=== PATIENT | male | born 1985 | race Hispanic/Latino ===

== ENCOUNTER 2020-01-06 02:01 | Emergency (ER) | payer BC ==
[2020-01-06] MEDS ORDERED: ASPIRIN 325 MG TABLET ONE (02:07)
[2020-01-06 02:17] LABS: BASOPHILS % (AUTO) 0.6 % (0.0-5.0); EOSINOPHILS % (AUTO) 2.1 % (0.0-8.0); HEMATOCRIT 44.7 % (42-54); LYMPHOCYTES % (AUTO) 44.8 % (21.0-51.0); MEAN CORPUSCULAR HGB CONC 34.7 g/dL (32.0-36.0); MEAN CORPUSCULAR VOLUME 86.5 fL (79-99); MONOCYTES % (AUTO) 6.3 % (3.0-13.0); NEUTROPHILS % (AUTO) 45.9 % (40.0-77.0); PLATELET COUNT (AUTO) 302 K/uL (130-400); RED BLOOD CELL COUNT(AUTO) 5.17 MIL/uL (4.50-6.20); RED CELL DISTRIBUTION WIDTH 11.7 % (11.0-15.5); WHITE BLOOD COUNT (AUTO) 8.7 K/uL (4.8-10.8)
[2020-01-06 02:27] LABS: CREATININE 0.9 mg/dL (0.5-1.5); POTASSIUM 3.9 mmol/L (3.5-5.1)
[2020-01-06 02:30] LABS: INR 0.91 (0.85-1.15); PARTIAL THROMBOPLASTIN TIME 25.7 SEC (26.3-35.5); PROTHROMBIN TIME 9.9 SEC (9.6-11.6)
[2020-01-06 02:32] LABS: ALBUMIN 4.2 g/dL (3.5-5.0); BILIRUBIN,TOTAL 0.3 mg/dL (0.2-1.0); TOTAL PROTEIN, SERUM 7.8 g/dL (6.0-8.3)
[2020-01-06] MEDS ORDERED: LIDOCAINE HCL 2% VISCOUS 15 ML UDCUP ONE (02:58)
[2020-01-06] MEDS ORDERED: MAG HYDROX/AL HYDROX/SIMETH ES 30 ML SUSP UDCUP ONE (02:58)
== END 2020-01-06 04:11 | disposition home or self-care (01) ==
LOC: EDH 02:01
DX: R07.89 Other chest pain (principal)
CPT/HCPCS: 36415; 71045; 80053; 83690; 84484; 85025; 85610; 85730; 93005

== ENCOUNTER 2021-02-14 06:06 | Emergency (ER) | payer OTHER, BC ==
[2021-02-14 06:32] LABS: BASOPHILS % (AUTO) 0.5 % (0.0-5.0); EOSINOPHILS % (AUTO) 2.6 % (0.0-8.0); HEMATOCRIT 42.6 % (42-54); LYMPHOCYTES % (AUTO) 41.1 % (21.0-51.0); MEAN CORPUSCULAR HEMOGLOBIN 30.4 pg (27.0-33.0); MEAN CORPUSCULAR HGB CONC 33.6 g/dL (32.0-36.0); MEAN CORPUSCULAR VOLUME 90.4 fL (79-99); MONOCYTES % (AUTO) 8.1 % (3.0-13.0); NEUTROPHILS % (AUTO) 47.3 % (40.0-77.0); PLATELET COUNT (AUTO) 289 K/uL (130-400); RED BLOOD CELL COUNT(AUTO) 4.71 MIL/uL (4.50-6.20); RED CELL DISTRIBUTION WIDTH 12.3 % (11.0-15.5); WHITE BLOOD COUNT (AUTO) 7.6 K/uL (4.8-10.8)
[2021-02-14 06:37] LABS: APPEARANCE,URINE Clear (CLEAR); BILIRUBIN,URINE Negative (NEGATIVE); COLOR,URINE Yellow (YELLOW); GLUCOSE, URINE (UA) Negative (NEGATIVE); KETONES,URINE Negative (NEGATIVE); LEUKOCYTE ESTERASE ,URINE Negative (NEGATIVE); NITRATE,URINE Negative (NEGATIVE); OCCULT BLOOD,URINE Negative (NEGATIVE); PROTEIN,URINE Negative (NEGATIVE); UROBILINOGEN,URINE 0.2 mg/dL (0.2-1.0)
[2021-02-14 06:53] LABS: BILIRUBIN,TOTAL 0.3 mg/dL (0.2-1.0)
[2021-02-14] MEDS ORDERED: MORPHINE SULFATE 4 MG/1ML SYG ONE (06:53)
[2021-02-14] MEDS ORDERED: ONDANSETRON HCL 4 MG/2 ML VIAL ONE (06:53)
[2021-02-14 06:54] LABS: ALBUMIN 4.3 g/dL (3.5-5.0)
== END 2021-02-14 07:59 | disposition home or self-care (01) ==
LOC: EDH 06:06
DX: K80.80 Other cholelithiasis without obstruction (principal)
CPT/HCPCS: 36415; 76705; 80053; 81003; 83690; 84484; 85025; 93005; 96374; 96375; 99285; J2270; J2405

== ENCOUNTER 2025-08-24 03:57 | Observation (INO) | payer OTHER, BC ==
[~2025-08-24] VITALS: Ht 172.7 cm; Wt 111.2 kg
--- NOTE | 2025-08-24 04:04 | ERN ---
General Chief Complaint: Abdominal Pain Stated Complaint: C/O RUQ PAIN RADIATING TO BACK Time Seen by MD: 03:58 History of Present Illness Initial Comments 40-year-old male here for evaluation of right upper quadrant pain that radiated to the back. Pain started earlier today at 12 noon. States that he recently had a dental extraction today for which he has been given Tylenol extra strength as well as Tylenol with codeine. Last time he took these medications was 4 hours prior to arrival. States the abdominal pain started when he 1st took the Tylenol with codeine. Pain is described as colicky and comes in waves. No vomiting or diarrhea. Patient states he has been eating last secondary to the recent tooth extraction. Surgical history includes cholecystectomy. Allergies: Coded Allergies: No Known Allergies (Unverified Allergy, Unknown, 08/24/25) Gastrointestinal/Abdominal: (+) abdominal pain Review of Systems: was completed, & the rest were negative. Physical Exam General Appearance: (+) no apparent distress Orientation: (+) alert, (+) oriented x 3 Head/Face Trauma: No Eye: bilateral eye normal inspection, bilateral eye PERRL Ear, Nose, Throat: (+) hearing grossly normal, (+) normal ENT inspection, (+) moist mucous membraine, (+) normal pharynx Neck: (+) normal inspection Respiratory: (+) chest non-tender Heart: (+) regular; (-) murmur Gastrointestinal: (+) soft, (+) non-tender, (+) tender (Right upper quadrant) Skin: (+) normal color; (-) rash Results Laboratory and Microbiology Lab and Micro Result Laboratory Tests Test 08/24/25 04:24 White Blood Count 7.8 K/uL (4.8-10.8) Red Blood Count 5.32 MIL/uL (4.50-6.20) Hemoglobin 16.2 g/dL (14.0-18.0) Hematocrit 47.4 % (42-54) Mean Corpuscular Volume 89.1 fL (79-99) Mean Corpuscular Hemoglobin 30.5 pg (27.0-33.0) Mean Corpuscular Hemoglobin Concent 34.2 g/dL (32.0-36.0) Red Cell Distribution Width 12.5 % (11.0-15.5) Platelet Count 242 K/uL (130-400) Mean Platelet Volume 9.0 fL (7.5-10.5) Immature Granulocyte % (Auto) 0.3 % (0-1) Neutrophils (%) (Auto) 55.9 % (40.0-77.0) Lymphocytes (%) (Auto) 32.1 % (21.0-51.0) Monocytes (%) (Auto) 9.4 % (3.0-13.0) Eosinophils (%) (Auto) 1.8 % (0.0-8.0) Basophils (%) (Auto) 0.5 % (0.0-5.0) Neutrophils # (Auto) 4.4 K/uL (1.8-7.7) Lymphocytes # (Auto) 2.5 K/uL (1.0-4.8) Monocytes # (Auto) 0.7 K/uL (0.1-1.0) Eosinophils # (Auto) 0.14 K/uL (0.00-0.70) Basophils # (Auto) 0.04 K/uL (0.00-0.20) Absolute Immature Granulocyte (auto 0.02 K/uL (0-1) Nucleated Red Blood Cells 0.0 % (0.0-0.19) Sodium Level 138 mmol/L (136-145) Potassium Level 3.9 mmol/L (3.5-5.1) Chloride Level 101 mmol/L (101-111) Carbon Dioxide Level 28 mmol/L (21-32) Blood Urea Nitrogen 18 mg/dL (7-18) Creatinine 1.0 mg/dL (0.5-1.3) Glomerular Filtration Rate Calc 96 mL/min (>90) Random Glucose 106 mg/dL (70-105) H Total Calcium 8.8 mg/dL (8.5-10.1) Total Bilirubin 0.8 mg/dL (0.2-1.0) Direct Bilirubin 0.3 mg/dL (0.0-0.3) Aspartate Amino Transf (AST/SGOT) 56 U/L (10-37) H Alanine Aminotransferase (ALT/SGPT) 60 U/L (12-78) Alkaline Phosphatase 67 U/L (50-136) Lactate Dehydrogenase 162 U/L (81-234) Total Protein 7.3 g/dL (6.0-8.3) Albumin 3.9 g/dL (3.5-5.0) Triglycerides Level 199 mg/dL (30-200) Lipase 1088 U/L (16-77) *H MDM 40-year-old male here for evaluation of right upper quadrant pain. Has had cholecystectomy before in the past. We will get basic lab work at this time. Disposition pending results of labs and clinical improvement of the patient ED Course Orders Procedure Category Date Status Time Cbc With Differential LAB 08/24/25 Complete 03:59 Basic Metabolic Panel LAB 08/24/25 Complete 03:59 Hepatic Function Panel LAB 08/24/25 Complete 03:59 Lipase LAB 08/24/25 Complete 03:59 Morphine 4mg Syg PHA 08/24/25 Complete (Morphine 4mg Syg) 04:30 Ondansetron 4mg Inj PHA 08/24/25 Complete (Zofran 4mg Inj) 04:30 0.9%Nacl 1000ml (Ns PHA 08/24/25 In Process 1000ml) 04:30 Lactate Dehydrogenase LAB 08/24/25 Complete 04:24 Ct Abdomen/Pelvis CT 08/24/25 Taken W/Wo Contras 05:23 Triglycerides LAB 08/24/25 Complete 05:23 Iohexol (Omnipaque) PHA 08/24/25 Complete 05:35 Current Medications Medications (Trade) Dose Ordered Sig/Krystin Route PRN Reason Start Time Stop Time Status Last Admin Dose Admin Iohexol (Omnipaque) 75 ml STK-MED ONCE IV 08/24/25 05:35 08/24/25 05:35 DC Morphine Sulfate (morPHINE 4MG SYG) 4 mg ONCE ONCE IVP 08/24/25 04:30 08/24/25 04:31 DC 08/24/25 04:30 Ondansetron HCl (zoFRAN 4MG INJ) 4 mg ONCE ONCE IVP 08/24/25 04:30 08/24/25 04:31 DC 08/24/25 04:30 Sodium Chloride 1,000 ml @ 0 mls/hr Q0M IV 08/24/25 04:30 09/23/25 04:29 08/24/25 04:31 Vital Signs Date Time Temp Pulse Resp B/P (MAP) Pulse Ox O2 Delivery O2 Flow Rate FiO2 08/24/25 04:38 98.8 88 18 124/66 98 Room Air* 0 21 08/24/25 03:58 97.2 71 20 138/88 95 Room Air Patient has been admitted for pancreatitis. Triglycerides within normal limits. Discussed plan with patient as well as patient's . I we will call hospitalist at this time DX & DISP Disposition: Inpatient Departure Impression: Primary Impression: Pancreatitis Additional Impression: Intractable abdominal pain Condition: Stable Referrals: SELF,REFERRAL (PCP) MIRYAM KASPER MD Aug 24, 2025 04:04
[2025-08-24] MEDS: 0.9%NACL 1000ML 1,000 ML IV SCH (04:31)
[2025-08-24 04:38] LABS: IMMATURE GRANULOCYTE ABSOLUTE 0.02 K/uL (0-1); NUCLEATED RED BLOOD CELLS 0.0 % (0.0-0.19); PLATELET COUNT (AUTO) 242 K/uL (130-400); RED BLOOD CELL COUNT(AUTO) 5.32 MIL/uL (4.50-6.20); RED CELL DISTRIBUTION WIDTH 12.5 % (11.0-15.5); WHITE BLOOD COUNT (AUTO) 7.8 K/uL (4.8-10.8)
[2025-08-24 04:48] LABS: CREATININE 1.0 mg/dL (0.5-1.3); GLOMERULAR FILTR. RATE CALC 96.0 mL/min (>90); GLUCOSE,RANDOM 106.0 mg/dL (70-105); SODIUM SERUM 138.0 mmol/L (136-145); UREA NITROGEN, BLOOD 18.0 mg/dL (7-18)
[2025-08-24 04:52] LABS: ASPARTATE AMINOTRANSFERASE 56.0 U/L (10-37); LACTATE DEHYDROGENASE 162.0 U/L (81-234); TOTAL PROTEIN, SERUM 7.3 g/dL (6.0-8.3)
[2025-08-24] MEDS ORDERED: IOHEXOL-350 75 ML VIAL IV ONE (05:35)
--- NOTE | 2025-08-24 06:19 | HMCIMG ---
EXAM: CT Abdomen and Pelvis with and without IV contrast. CLINICAL HISTORY: R/O PANCREATITIS. TECHNIQUE: Axial computed tomography images of the abdomen and pelvis with and without intravenous contrast. CONTRAST: With and without intravenous contrast. COMPARISON: None provided. FINDINGS: LUNG BASES: Bibasilar atelectasis. No pleural effusions are seen. LIVER: Unremarkable. GALLBLADDER AND BILE DUCTS: The gallbladder is surgically absent. No biliary ductal dilatation is evident. PANCREAS: Unremarkable. No peripancreatic fat inflammation or fluid. SPLEEN: Unremarkable. ADRENAL GLANDS: Unremarkable. KIDNEYS, URETERS, AND BLADDER: The kidneys appear within normal limits. There is no hydronephrosis or hydroureter. No urinary calculi are seen. STOMACH AND BOWEL: Unremarkable appearance of the stomach and bowel. No evidence of bowel obstruction. No evidence suggesting enteritis or colitis. APPENDIX: No evidence of acute appendicitis on CT examination. PERITONEUM: No free fluid. No free air. LYMPH NODES: No lymphadenopathy is evident. REPRODUCTIVE: Unremarkable as visualized. VASCULATURE: No evidence of abdominal aortic aneurysm. BONES: No aggressive appearing osseous lesion. No acute osseous pathology is evident. Small, approximately 9-10 mm-sized defect in the left inguinal region with herniation of omentum???left inguinal hernia containing fat. IMPRESSION: No acute intra-abdominal or pelvic abnormality. No evidence of pancreatitis. /Grey
[2025-08-24 08:15] VITALS: BP 135/81; PULSE 64; RESP 18; TEMP 97.7
[2025-08-24 08:30] VITALS: O2SAT 99
[2025-08-24] MEDS ORDERED: ACET-2079 PO (08:41)
[2025-08-24 09:03] LABS: APPEARANCE,URINE CLEAR (CLEAR); GLUCOSE, URINE (UA) NEGATIVE (NEGATIVE); LEUKOCYTE ESTERASE ,URINE NEGATIVE Leu/uL (NEGATIVE); NITRATE,URINE NEGATIVE (NEGATIVE); OCCULT BLOOD,URINE NEGATIVE (NEGATIVE)
[2025-08-24 09:04] LABS: ADD UA MICROSCOPIC NO
[2025-08-24] MEDS: LACTATED RINGERS 1000ML 1,000 ML IV SCH (09:30)
--- NOTE | 2025-08-24 09:35 | HP ---
[facility] HISTORY AND PHYSICAL Date of Service: Aug 24, 2025 Time of Service: 09:28 HISTORY OF PRESENT ILLNESS: [Mr. Murray is a 40-year-old male presenting with acute onset right upper quadrant (RUQ) abdominal pain radiating to the back. The pain began after he took Tylenol No. 3 (2 tablets) at midnight last night for post-extraction pain following a left lower molar extraction on 08/23/2025. He reports that prior to this, he was taking ibuprofen and Tylenol at night for dental pain, but did not exceed recommended dosages. He denies nausea, vomiting, or changes in bowel habits. No prior similar episodes. No history of gallstones (status post cholecystectomy years ago). No history of alcohol abuse, tobacco, or illicit drug use. He drinks alcohol occasionally. No known drug allergies. ] REVIEW OF SYSTEMS CONSTITUTIONAL: Denies fevers, chills, or night sweats. No unintentional weight loss reported. NEUROLOGICAL: Denies headache, amaurosis fugax, motor weakness, sensory deficit, vertigo/spinning sensation, gait abnormalities, or tremors. ENT: No hearing loss, otalgia, otorrhea, rhinitis, rhinorrhea, hoarseness, or sore throat. CARDIOVASCULAR: Denies any exertional angina, dyspnea on exertion, orthopnea, paroxysmal nocturnal dyspnea, palpitations, life-threatening arrhythmias, claudication. PULMONARY: Denies any shortness of breath, cough, phlegm/sputum, hemoptysis, pleuritic chest pain. SLEEP: Denies morning headaches, daytime somnolence or napping. Denies difficulty falling asleep, staying asleep, waking from sleep. Denies knowledge of snoring. GASTROINTESTINAL: RUQ pain radiating to back, denies nausea/vomiting, no diarrhea or constipation GENITOURINARY: Denies frequency, urgency, nocturia, hematuria or incontinence (Storage/Irritative symptoms.) Low urinary stream, straining to void, urinary intermittency or hesitancy, splitting of the voiding stream, terminal dribbling. ENDOCRINOLOGIC: Denies polyuria, polydipsia, polyphagia or heat/cold intolerances. HEMATOLOGIC: Denies thrombophilia/previous clots, or coagulopathy/bleeding disorders. ONCOLOGIC: Denies personal history of malignancy. DERMATOLOGIC: Denies rashes or pruritus. PSYCHIATRIC: Denies any suicidal or homicidal ideation. Denies hallucinations. PAST MEDICAL HISTORY: [No chronic medical conditions reported. 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 NEUROLOGICAL: Cranial nerves II-XII grossly intact. Motor is 5/5 in bilateral upper and lower extremities proximal to distal. No sensory deficits. HEENT: Face is symmetric. Pupils are equal and reactive. Extraocular movements are intact. NECK: Supple. No JVD. No thyromegaly. No submental, submandibular, pre- /postauricular, occipital or supraclavicular lymphadenopathy. CHEST: Normal chest expansion. No Telemetry. LUNGS: Absence of any rales, rhonchi or any wheezing. CARDIOVASCULAR: Regular. S1 and S2 normal. No appreciable rubs, murmurs or gallops. ABDOMEN: Tenderness to palpation in RUQ, no rebound or guarding, no palpable masses, bowel sounds present : Deferred. No Rosario. EXTREMITIES: Non-edematous and not cyanotic. No clubbing. Good capillary refill. SKIN: No skin breakdown. Vital Sign (Last 24 Hours) 08/24/25 07:57 Temp 98.8 Pulse 60 Resp 20 B/P (MAP) 120/64 Pulse Ox 97 O2 Delivery Room Air* O2 Flow Rate 0 FiO2 21 LABS: Laboratory: Test 08/24/25 08:02 08/24/25 04:24 Range/Units Urine Color LIGHT-YELLOW YELLOW Urine Appearance CLEAR CLEAR Urine pH 6.5 5.0-8.0 Urine Specific [place] 1.033 H 1.001-1.031 Urine Protein NEGATIVE NEGATIVE mg/dL Urine Glucose (UA) NEGATIVE NEGATIVE mg/dL Urine Ketones NEGATIVE NEGATIVE mg/dL Urine Occult Blood NEGATIVE NEGATIVE Urine Nitrate NEGATIVE NEGATIVE Urine Bilirubin NEGATIVE NEGATIVE mg/dL Urine Urobilinogen 0.2 0.2-1.0 mg/dL Urine Leukocyte Esterase NEGATIVE NEGATIVE Ban/uL White Blood Count 7.8 4.8-10.8 K/uL Red Blood Count 5.32 4.50-6.20 MIL/uL Hemoglobin 16.2 14.0-18.0 g/dL Hematocrit 47.4 42-54 % Mean Corpuscular Volume 89.1 79-99 fL Mean Corpuscular Hemoglobin 30.5 27.0-33.0 pg Mean Corpuscular Hemoglobin Concent 34.2 32.0-36.0 g/dL Red Cell Distribution Width 12.5 11.0-15.5 % Platelet Count 242 130-400 K/uL Mean Platelet Volume 9.0 7.5-10.5 fL Immature Granulocyte % (Auto) 0.3 0-1 % Neutrophils (%) (Auto) 55.9 40.0-77.0 % Lymphocytes (%) (Auto) 32.1 21.0-51.0 % Monocytes (%) (Auto) 9.4 3.0-13.0 % Eosinophils (%) (Auto) 1.8 0.0-8.0 % Basophils (%) (Auto) 0.5 0.0-5.0 % Neutrophils # (Auto) 4.4 1.8-7.7 K/uL Lymphocytes # (Auto) 2.5 1.0-4.8 K/uL Monocytes # (Auto) 0.7 0.1-1.0 K/uL Eosinophils # (Auto) 0.14 0.00-0.70 K/uL Basophils # (Auto) 0.04 0.00-0.20 K/uL Absolute Immature Granulocyte (auto 0.02 0-1 K/uL Nucleated Red Blood Cells 0.0 0.0-0.19 % Sodium Level 138 136-145 mmol/L Potassium Level 3.9 3.5-5.1 mmol/L Chloride Level 101 101-111 mmol/L Carbon Dioxide Level 28 21-32 mmol/L Blood Urea Nitrogen 18 7-18 mg/dL Creatinine 1.0 0.5-1.3 mg/dL Glomerular Filtration Rate Calc 96 >90 mL/min Random Glucose 106 H 70-105 mg/dL Total Calcium 8.8 8.5-10.1 mg/dL Total Bilirubin 0.8 0.2-1.0 mg/dL Direct Bilirubin 0.3 0.0-0.3 mg/dL Aspartate Amino Transf (AST/SGOT) 56 H 10-37 U/L Alanine Aminotransferase (ALT/SGPT) 60 12-78 U/L Alkaline Phosphatase 67 50-136 U/L Lactate Dehydrogenase 162 81-234 U/L Total Protein 7.3 6.0-8.3 g/dL Albumin 3.9 3.5-5.0 g/dL Triglycerides Level 199 30-200 mg/dL Lipase 1088 *H 16-77 U/L Current Medications Medications (Trade) Dose Ordered Sig/Krystin Route PRN Reason Start Time Stop Time Status Last Admin Dose Admin Sodium Chloride 1,000 ml @ 0 mls/hr Q0M IV 08/24/25 04:30 09/23/25 04:29 08/24/25 04:31 999 MLS/HR DIAGNOSTICS / RADIOLOGY: [IMAGING CT Abdomen/Pelvis with and without IV contrast (08/24/2025): No evidence of pancreatitis (no peripancreatic fat stranding or fluid) No acute intra-abdominal or pelvic abnormality Gallbladder surgically absent Small left inguinal hernia containing fat (incidental) Bibasilar atelectasis at lung bases ] ASSESSMENT: [Acute pancreatitis, POA-based on clinical presentation and lipase greater than 3 times ULN, despite unremarkable imaging Intractable right upper quadrant pain History of cholecystectomy Recent dental extraction Incidental left inguinal hernia (asymptomatic) ] PLAN: [1. Admit to medical-surgical floor. 2. NPO (nothing by mouth): Bowel rest to reduce pancreatic stimulation. 3. IV fluid resuscitation: Start isotonic fluids LR 100 mL/hour 4. Pain management: Continue IV analgesia morphine 2 mg IV q.4 hours as needed PRN non-opioid adjuncts as appropriate. 5. Monitor labs: Serial lipase and amylase (order amylase now). Monitor CBC, BMP, LFTs, calcium, and glucose. Order hemoglobin A1c to assess for underlying glucose intolerance. 6. GI prophylaxis: Protonix 40 mg IV daily for stress ulcer prophylaxis. 7. DVT prophylaxis: Lovenox 40 mg subQ daily 8. Antiemetics: Ondansetron 4 mg IV q.6 hours PRN for nausea/vomiting 9. Monitor for complications: Watch for signs of systemic inflammatory response, organ dysfunction, or local complications (necrosis, pseudocyst). 10. Consults: GI consult if clinical course worsens or if etiology remains unclear. 11. Code status: Full code. 12. Communication: Case and plan discussed with Dr. Flores; plan formulated as above. ] ADVANCED CARE PLANNING 1. Which of the following were discussed? Hospice Care - Yes / No Therapeutic options - Yes / No Advance Directives - Yes / No Other discussions - 2. Discussed with who? Patient 3. Voluntary nature of this service was explained to the patient? Yes / No 4. Amount of time spent - _20 mins 5. Reviewed by Physician? (if this service was performed by NPP) Yes / No ATTESTATION BY PHYSICIAN I have seen and examined the patient. I reviewed the documentation, medical decision making, and treatment plan as noted by the mid-level provider above. I agree with the findings and plan of care. GRAYSON FLORES MD, [facility] Aug 24, 2025 09:35
[2025-08-24 11:36] VITALS: BP 125/77; PULSE 73; RESP 14; TEMP 97.9
--- NOTE | 2025-08-24 14:35 | NUR ---
DCP:HOME Pt currently lives at home with his Shanita Murray [phone]. Pt denies any DME, home health, or provider services. pt states that he is able to complete ADLs independently. PCP is a at the [place], states that he is on the [facility] team and gets seen by different doctors everytime he goes. At DC pt will want to go home and family can assist with transportation.
[2025-08-24 15:57] VITALS: BP 131/78; PULSE 73; RESP 18; TEMP 97.8
[2025-08-24 20:00] VITALS: BP 139/92; PULSE 81; RESP 16; TEMP 98.5; O2SAT 96
[2025-08-25] VITALS: BP_SYST 139; BP_SYST 149; BP_DIAS 85; BP_DIAS 92; PULSE 72; PULSE 81; RESP 16; TEMP 98.3; TEMP 98.5
[2025-08-25 04:00] VITALS: BP 132/81; PULSE 60; RESP 18; TEMP 98.1
[2025-08-25 07:38] VITALS: BP 143/93; PULSE 63; RESP 18; TEMP 97.8
[2025-08-25 07:58] LABS: NUCLEATED RED BLOOD CELLS 0.0 % (0.0-0.19); PLATELET COUNT (AUTO) 221.0 K/uL (130-400); RED BLOOD CELL COUNT(AUTO) 5.2 MIL/uL (4.50-6.20); RED CELL DISTRIBUTION WIDTH 12.7 % (11.0-15.5); WHITE BLOOD COUNT (AUTO) 5.7 K/uL (4.8-10.8)
[2025-08-25 08:00] VITALS: O2SAT 97
[2025-08-25 08:07] LABS: CREATININE 0.9 mg/dL (0.5-1.3); GLOMERULAR FILTR. RATE CALC 109.0 mL/min (>90); GLUCOSE,RANDOM 101.0 mg/dL (70-105); SODIUM SERUM 137.0 mmol/L (136-145); UREA NITROGEN, BLOOD 10.0 mg/dL (7-18)
[2025-08-25] MEDS ORDERED: IBUP-2076 PO (08:31)
--- NOTE | 2025-08-25 09:53 | DS ---
Discharge Summary Hospital Course Summary: HOSPITAL COURSE: Mr. Murray was admitted with acute onset right upper quadrant abdominal pain radiating to the back, following recent use of Tylenol No. 3 for post-dental extraction pain. Initial workup revealed a markedly elevated lipase (1088 U/L) with normal abdominal imaging and no evidence of gallbladder or biliary pathology (status post cholecystectomy). He was managed with bowel rest, IV fluids, analgesia, and supportive care. During his hospitalization, he remained hemodynamically stable without evidence of systemic inflammatory response or organ dysfunction. Serial laboratory monitoring showed normalization of pancreatic enzymes: most recent lipase 36 U/L and amylase 106 U/L. He tolerated advancement of diet without recurrence of pain, nausea, or vomiting. DISCHARGE CONDITION: Hemodynamically stable Tolerating oral diet Pain well controlled Ambulatory at baseline DISCHARGE MEDICATIONS: Ibuprofen 400 mg by mouth every 6 hours as needed for pain Hold acetaminophen with codeine (Tylenol#3) for now Resume other home medications as previously prescribed Assessment/Plan: ASSESSMENT: [Acute pancreatitis, POA-based on clinical presentation and lipase greater than 3 times ULN, despite unremarkable imaging Intractable right upper quadrant pain History of cholecystectomy Recent dental extraction Incidental left inguinal hernia (asymptomatic) ] Discharge diagnoses Acute pancreatitis, resolved History of cholecystectomy Recent dental extraction Incidental left inguinal hernia (asymptomatic) Discharge Instructions: FOLLOW-UP INSTRUCTIONS: Monitor for recurrence of abdominal pain, persistent nausea/vomiting, or signs of infection (fever, chills). Avoid alcohol and high-fat foods for at least 2 weeks. Follow up with primary care provider or gastroenterology as scheduled. Return to the emergency department for severe pain, persistent vomiting, jau ndice, or any new concerning symptoms. Home Medications: Reported Medications Acetaminophen with Codeine (Acetaminophen-Cod #3 Tablet) 300 Mg-30 Mg Tablet, 1 TAB PO Q6HPRN PRN for pain for 7 Days, #28 TAB 0 Refills 08/24/25 New Medications: Ibuprofen (Ibuprofen) 400 Mg Tablet 1 TAB PO Q6HPRN PRN for pain or fever for 5 Days, #20 TAB 0 Refills Discontinued Medications: Acetaminophen with Codeine (Acetaminophen-Cod #3 Tablet) 300 Mg-30 Mg Tablet 1 TAB PO Q6HPRN PRN for pain for 7 Days, #28 TAB 0 Refills Time spent arranging discharge: 31-60 minutes ATTESTATION BY PHYSICIAN I have seen and examined the patient. I reviewed the documentation, medical decision making, and treatment plan as noted by the mid-level provider above. I agree with the findings and plan of care. GRAYSON FLORES MD, [facility] Aug 25, 2025 09:53
--- NOTE | 2025-08-25 11:50 | NUR ---
Pt. given discharge instructions, verbalized understanding and all questions answered. Peripheral IV removed and hemostasis achieved. Pt. dc'd via w/c to private vehicle. No acute distress noted.
== END 2025-08-25 12:00 | disposition home or self-care (01) ==
LOC: EDH 03:57 → EDHIP 06:18 → INTOOBSV 06:18 → 1MS 08:15
PROVIDERS: ADMIT Internal Medicine; ATTEND Internal Medicine
DX: K85.90 Acute pancreatitis without necrosis or infection, unspecified (principal); K40.90 Unilateral inguinal hernia, without obstruction or gangrene, not specified as recurrent; Z90.49 Acquired absence of other specified parts of digestive tract; Z79.899 Other long term (current) drug therapy; Z98.890 Other specified postprocedural states
CPT/HCPCS: 99285; 96361 ×2; 74178; 96374; 96375 ×2; 84478; 83036; 82150 ×2; 80076; 83615; 80048 ×2; 83690 ×3; 85025; 81003; 36415 ×2; 85027; J2405; J2270; Q9967; G0378; J2470